=== PATIENT | male | born 1950 | race Two or more races ===

== ENCOUNTER 2018-09-28 05:00 | Day surgery (SDC) | payer OTHER ==
[~2018-09-28 05:00] MED LIST: ASA81 MG PO; LISINOPRIL2.5 MG PO; VASOTEC2.5 MG PO
== END 2018-09-28 14:10 | disposition home or self-care (01) ==
LOC: CIR.AMB 05:00
DX: K40.90 Unilateral inguinal hernia, without obstruction or gangrene, not specified as recurrent (principal)

== ENCOUNTER 2018-09-28 18:43 | Emergency (ER) | payer OTHER ==
[~2018-09-28] VITALS: Ht 165.1 cm; Wt 78.9 kg
--- NOTE | 2018-09-28 18:57 | NUR ---
PACIENTE ALERTA Y ORIENTADO EN LILLIAN GERRY ESFERAS, REFIERE DOLOR EN ANNALISE RT Y PENE LUEGO DE CIRUGIA REALIZADA POR DR PATEL DONDE LE RETIRARON DAVE HERNIA INGUINAL.
== END 2018-09-29 07:01 | disposition home or self-care (01) ==
LOC: ER 18:43 → SURG 19:44 → O/R 19:44 → ER 09-29 07:01 → SURG 09-29 09:51 → O/R 09-29 09:51
DX: N99.821 Postprocedural hemorrhage of a genitourinary system organ or structure following other procedure (principal); R31.0 Gross hematuria; R30.0 Dysuria
CPT/HCPCS: 99283; 36415; 96365; J0744; J3480